=== PATIENT | female | born 1960 | race Caucasian/White ===

== ENCOUNTER 2017-05-08 18:34 | Emergency (ER) | payer OTHER ==
[~2017-05-08] VITALS: Ht 165.1 cm; Wt 73.9 kg
[~2017-05-08 18:34] MED LIST: BENICAR HCT1 TA1 PO; [UNRECOGNIZED DRUG - OTHER] PO
[2017-05-08 20:21] VITALS: BP 158/99
== END 2017-05-08 20:21 | disposition home or self-care (01) ==
LOC: ED 18:34
DX: H43.12 Vitreous hemorrhage, left eye (principal); I10 Essential (primary) hypertension; Z79.899 Other long term (current) drug therapy